=== PATIENT | female | born 1950 | race Caucasian/White ===

== ENCOUNTER 2016-12-10 11:44 | Emergency (ER) | payer BC ==
--- NOTE | 2016-12-10 11:49 | EDM.PDOC ---
ED HPI GI/ABDOMINAL - General Chief Complaint: Gastrointestinal Problem Stated Complaint: DIARRHEA FOR ONE WEEK [phone] Time Seen by Provider: 12/10/16 11:48 Source of Information: Reports: Patient, RN, RN notes reviewed History Limitations: Reports: No limitations - History of Present Illness INITIAL COMMENTS - FREE TEXT/NARRATIVE: C/O diarrhea x1 week. Pt reports that at the onset she felt fever and chills for a few hours. She admits to nausea intermittently, but only vomited on time several days ago. Denies abdominal pain. She states her anus is sore from the diarrhea. Denies blood or mucus in the stool. 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: Reports: Other medication(s) (OTC Immodium AD, with no relief) - Related Data Allergies/ADRs: Allergies Allergy/AdvReac Type Severity Reaction Status Date / Time codeine Allergy Hives Verified 12/10/16 12:09 cortisone Allergy Swelling Verified 12/10/16 12:09 NSAIDS (Non-Steroidal Allergy Abdominal Verified 12/10/16 12:09 Anti-Inflamma Cramps Home Meds: Home Meds Albuterol Sulfate [Proair Respiclick] 2 puff INH Q4H PRN 12/10/16 [History] Albuterol/Ipratropium [DuoNeb 3.0-0.5 MG/3 ML] 1 each NEB Q4H 12/10/16 [History] Chlorpheniramine Maleate [Chlor-Trimeton] 1 tab PO BID 12/10/16 [History] Cranberry 1 each PO DAILY 12/10/16 [History] Fluticasone Propionate [24 Hour Allergy Relief] 2 sprays NASBOTH DAILY 12/10/16 [History] Fluticasone/Salmeterol [Advair Hfa 230-21 Mcg Inhaler] 2 puff INH BID 12/10/16 [ History] Hydroxychloroquine Sulfate [Plaquenil] 200 mg PO DAILY 12/10/16 [History] Leflunomide 20 mg PO DAILY 12/10/16 [History] Lisinopril 20 mg PO DAILY 12/10/16 [History] Montelukast [Singulair] 10 mg PO DAILY 12/10/16 [History] metFORMIN HCl [Metformin HCl] 1,000 mg PO BID 12/10/16 [History] Past Medical History HEENT History: Reports: Impaired vision Cardiovascular History: Reports: Hypertension Respiratory History: Reports: Asthma, COPD Musculoskeletal History: Reports: Fibromyalgia, RA Endocrine/Metabolic History: Reports: Diabetes, type II Social & Family History - Family History Family Medical History: Noncontributory - Tobacco Use Smoking Status *Q: Former Smoker Tobacco Use Within Last Twelve Months: Cigarettes - Caffeine Use Caffeine Use: Reports: Coffee - Alcohol Use Alcohol Use History: No - Recreational Drug Use Recreational Drug Use: No - Living Situation & Occupation Living situation: Reports: , with spouse Occupation: retired ED ROS GENERAL - Review of Systems Review Of Systems: ROS reveals no pertinent complaints other than HPI. ED EXAM, GI/ABD - Physical Exam Exam: See Below Exam Limited By: No limitations General Appearance: alert, no apparent distress, obese, other (chronically ill appearing) Eyes: bilateral: normal appearance, EOMI Ears: normal external exam, hearing grossly normal Nose: normal inspection, normal mucosa, no blood Throat/Mouth: Normal lips, Normal teeth, Normal gums, Normal oropharynx, Normal voice, No airway compromise, Other (dry oral membranes) Head: atraumatic, normocephalic Neck: normal inspection, supple, non-tender, full range of motion. No: lymphadenopathy (L), lymphadenopathy (R) Respiratory/Chest: no respiratory distress, no accessory muscle use, decreased breath sounds, wheezing Cardiovascular: normal peripheral pulses, regular rate, rhythm, no edema, no gallop, no JVD, no murmur, no rub, tachycardia GI/Abdominal: normal bowel sounds, soft, non tender, no organomegaly, no distention, no abnormal bruit (Female) Exam: Deferred Rectal (Female) Exam: Deferred Back Exam: normal inspection, full range of motion. No: CVA tenderness (L), CVA tenderness (R) Extremities: normal inspection, normal range of motion, non-tender, normal capillary refill, no pedal edema Neurological: alert, oriented, CN II-XII intact, normal cognition, normal gait, no motor/sensory deficits Psychiatric: normal affect, normal mood Skin Exam: Warm, Dry, Intact, Normal color, No rash Course - Vital Signs Last Recorded V/S: Last Vital Signs Temp 37.1 C 12/10/16 12:01 Pulse 112 H 12/10/16 12:01 Resp 18 12/10/16 12:01 BP 121/61 12/10/16 12:01 Pulse Ox 97 12/10/16 12:01 - Orders/Labs/Meds Orders: Active Orders 24 hr Category Date Time Status Peripheral IV Care [RC] . DIRECTED Care 12/10/16 12:19 Active C DIFFICILE TOXIN BY PCR [MREF] Stat Lab 12/10/16 13:42 Ordered CULTURE STOOL [RM] Stat Lab 12/10/16 13:42 Ordered Hemoccult, Stool [OCCULT BLOOD DIAGNOSTIC] [OP] Stat Lab 12/10/16 13:42 Ordered Sodium Chloride 0.9% [Saline Flush] Med 12/10/16 12:18 Active 10 ml FLUSH ASDIRECTED PRN Peripheral IV Insertion Adult [OM.PC] Stat Oth 12/10/16 12:18 Ordered Medication Orders Sodium Chloride (Saline Flush) 10 ml FLUSH ASDIRECTED PRN PRN Reason: Keep Vein Open Last Admin: 12/10/16 12:38 Dose: 10 ml Labs: Laboratory Tests 12/10/16 12/10/16 12/10/16 Range/Units 12:14 12:30 12:30 WBC 11.2 H (5.0-10.0) 10^3/uL RBC 4.93 (4.2-5.4) 10^6/uL Hgb 12.8 (12.0-16.0) g/dL Hct 40.3 (37.0-47.0) % MCV 81.7 (80-100) fL MCH 26.0 L (27.0-34.0) pg MCHC 31.8 L (33.0-35.0) g/dL Plt Count 408 (150-450) 10^3/uL Neut % (Auto) 65.2 (42.2-75.2) % Lymph % (Auto) 10.4 L (20.5-50.1) % Leake % (Auto) 22.9 H (2-8) % Eos % (Auto) 1.2 (1.0-3.0) % Baso % (Auto) 0.3 (0.0-1.0) % Sodium 132 L (135-145) mmol/L Potassium 4.1 (3.6-5.0) mmol/L Chloride 95 L (101-111) mmol/L Carbon Dioxide 24.0 (21.0-31.0) mmol/L Anion Gap 17.1 BUN 14 (7-18) mg/dL Creatinine 1.1 (0.6-1.3) mg/dL Est Cr Clr Drug Dosing 35.65 mL/min Estimated GFR (MDRD) 50 BUN/Creatinine Ratio 12.72 Glucose 272 H (74-105) mg/dL Calcium 8.7 (8.4-10.2) mg/dl Total Bilirubin 0.6 (0.2-1.0) mg/dL AST 35 (10-42) IU/L ALT 37 (10-60) IU/L Alkaline Phosphatase 72 (42-121) IU/L Total Protein 6.9 (6.7-8.2) g/dl Albumin 3.1 L (3.2-5.5) g/dl Globulin 3.8 Albumin/Globulin Ratio 0.82 Amylase 31 (28-100) U/L Lipase 31 (22-51) U/L Urine Color Naye (YELLOW) Urine Appearance Slightly cloudy (CLEAR) Urine pH 6.0 (5.0-9.0) Ur Specific [place] 1.025 (1.005-1.030) Urine Protein >=300 H (NEGATIVE) Urine Glucose (UA) Negative (NEGATIVE) Urine Ketones 40 H (NEGATIVE) Urine Occult Blood Moderate H (NEGATIVE) Urine Nitrite Negative (NEGATIVE) Urine Bilirubin Large H (NEGATIVE) Urine Urobilinogen 0.2 (0.2-1.0) mg/dL Ur Leukocyte Esterase Small H (NEGATIVE) Urine RBC 5-10 H /HPF Urine WBC 0-5 (0-5/HPF) /HPF Ur Epithelial Cells Many H /HPF Urine Bacteria Moderate H (0-FEW/HPF) /HPF Urine Mucus Many H /LPF Meds: Medications Generic Name Dose Route Start Last Admin Trade Name Freq PRN Reason Stop Dose Admin Sodium Chloride 10 ml 12/10/16 12:18 12/10/16 12:38 Saline Flush FLUSH 10 ml ASDIRECTED PRN Administration Keep Vein Open Discontinued Medications Generic Name Dose Route Start Last Admin Trade Name Juan PRN Reason Stop Dose Admin Diphenoxylate HCl/Atropine 2 tab 12/10/16 13:43 12/10/16 13:48 Lomotil 0.025-2.5 Mg PO 12/10/16 13:44 2 tab ONETIME ONE Administration Sodium Chloride 1,000 mls @ 999 mls/hr 12/10/16 12:19 12/10/16 12:40 Normal Saline IV 12/10/16 13:19 999 mls/hr .BOLUS ONE Administration Ondansetron HCl 4 mg 12/10/16 12:20 12/10/16 12:39 Zofran IV 12/10/16 12:21 4 mg ONETIME ONE Administration - Re-Assessments/Exams Free Text/Narrative Re-Assessment/Exam: 12/10/16 14:03 Pt reports feeling improved following tx in ER. She is tolerating po liquids, and has had only one very small watts/brown watery BM. I explained the exam findings, results of all diagnostic tests, working diagnosis, and any potential or additionally considered diagnoses, treatment/ disposition plan, self/home care instructions, rational for the diagnosis/ treatment plan/disposition plan, anticipated course of illness, and follow up instructions to the pt and/or pts family or guardian. The pt and/or pts family or guardian acknowledges understanding of the above explanation(s), and of the signs and symptoms which should prompt the return of the pt to the ER should those or any other concerning symptoms develop. Departure - Departure Time of Disposition: 13:50 Disposition: Home, Self-Care 01 Condition: fair Clinical Impression: Colitis, enteritis, and gastroenteritis of presumed infectious origin, Dehydration Instructions: Dehydration, Adult, [id number], Diarrhea, Adult, [id number], Viral Gastroenteritis, Adult, [id number] Referrals: Rosie White, [employer] [Primary Care Provider] - Forms: ED Department Discharge Additional Instructions: Rx: Lomotil Rx: Zofran Clear liquid diet until nausea improves, then advance to soft bland diet as tolerated. Avoid dairy products (except yogurt with active cultures), high fat foods, spicy , and acidic foods. Follow up with your primary clinic in 2 days for recheck. Have your doctor check the result of your C-Difficile stool test. Return to ER if abdominal pain becomes severe, if your abdomen becomes distended , or if you have a high or persistent fever. - My Orders Last 24 Hours: My Active Orders 12/10/16 12:18 Sodium Chloride 0.9% [Saline Flush] 10 ml FLUSH ASDIRECTED PRN Peripheral IV Insertion Adult [OM.PC] Stat 12/10/16 12:19 Peripheral IV Care [RC] . DIRECTED 12/10/16 13:42 C DIFFICILE TOXIN BY PCR [MREF] Stat CULTURE STOOL [RM] Stat Hemoccult, Stool [OCCULT BLOOD DIAGNOSTIC] [OP] Stat - Assessment/Plan Last 24 Hours: My Active Orders 12/10/16 12:18 Sodium Chloride 0.9% [Saline Flush] 10 ml FLUSH ASDIRECTED PRN Peripheral IV Insertion Adult [OM.PC] Stat 12/10/16 12:19 Peripheral IV Care [RC] . DIRECTED 12/10/16 13:42 C DIFFICILE TOXIN BY PCR [MREF] Stat CULTURE STOOL [RM] Stat Hemoccult, Stool [OCCULT BLOOD DIAGNOSTIC] [OP] Stat
[2016-12-10 12:03] VITALS: BP 121/61
[2016-12-10] MEDS ORDERED: Sodium Chloride 0.9% 10 ML Syringe FLUSH PRN (12:18)
[2016-12-10] MEDS ORDERED: Sodium Chloride 0.9% 1,000 ML IV ONE (12:19)
[2016-12-10] MEDS ORDERED: Ondansetron 4 MG/2 ML SDV IV ONE (12:20)
[2016-12-10] MEDS ORDERED: Atropine/Diphenoxylate 0.025-2.5 MG Tab PO ONE (13:43)
== END 2016-12-10 14:00 | disposition home or self-care (01) ==
LOC: DL.ED 11:44
DX: K52.9 Noninfective gastroenteritis and colitis, unspecified (principal); E86.0 Dehydration; I10 Essential (primary) hypertension; J45.909 Unspecified asthma, uncomplicated; J44.9 Chronic obstructive pulmonary disease, unspecified; M06.9 Rheumatoid arthritis, unspecified; E11.9 Type 2 diabetes mellitus without complications; Z79.84 Long term (current) use of oral hypoglycemic drugs; Z79.899 Other long term (current) drug therapy; Z87.891 Personal history of nicotine dependence; Z88.5 Allergy status to narcotic agent; Z88.8 Allergy status to other drugs, medicaments and biological substances
CPT/HCPCS: 36415; 80053; 81001; 82150; 82272; 83690; 85025; 87493; 96361; 96374; 99284; A9270; J2405; J7030; J7050

== ENCOUNTER 2022-02-08 18:20 | Emergency (ER) | payer OTHER ==
[2022-02-08 22:52] VITALS: BP 147/62; PULSE 86
[2022-02-08] MEDS ORDERED: Acetaminophen 325 MG Tab PO ONE (22:55)
== END 2022-02-09 01:30 | disposition home or self-care (01) ==
LOC: DL.ED 18:20
DX: S52.502A Unspecified fracture of the lower end of left radius, initial encounter for closed fracture (principal); J45.909 Unspecified asthma, uncomplicated; I10 Essential (primary) hypertension; E11.9 Type 2 diabetes mellitus without complications; Z88.5 Allergy status to narcotic agent; Z88.6 Allergy status to analgesic agent; Z88.8 Allergy status to other drugs, medicaments and biological substances; Z79.899 Other long term (current) drug therapy; Z79.4 Long term (current) use of insulin; Z90.49 Acquired absence of other specified parts of digestive tract; Z87.891 Personal history of nicotine dependence; W18.39XA Other fall on same level, initial encounter
CPT/HCPCS: 29125; 73100; 99283; A9270

== ENCOUNTER 2023-10-01 14:28 | Inpatient (IN) | payer MEDICARE, BC ==
[2023-10-01 14:51] LABS: BASOPHILS PERCENT AUTO 0.2 % (0.0-1.0); HEMATOCRIT 38.5 % (37.0-47.0); HEMOGLOBIN 11.4 g/dL (12.0-16.0); LYMPHOCYTES PERCENT AUTO 10.4 % (20.5-50.1); MEAN CORPUSCULAR HEMOGLOBIN 24.6 pg (27.0-34.0); MEAN CORPUSCULAR HGB CONC 29.6 g/dL (33.0-35.0); MONOCYTES PERCENT AUTO 5.5 % (2-8); NEUTROPHILS PERCENT AUTO 82.9 % (42.2-75.2); PLATELET COUNT,PLT 324 10^3/uL (150-450); RED BLOOD CELL COUNT 4.64 10^6/uL (4.2-5.4); WHITE BLOOD CELL COUNT,WBC 12.2 10^3/uL (5.0-10.0)
[2023-10-01 15:12] LABS: ALANINE AMINOTRANSFERASE,ALT 42 U/L (14-59); ALKALINE PHOSPHATASE 115 U/L (46-116); ANION GAP 11.4 mEq/L (7-13); ASPARTATE AMNIOTRANSFERASE,AST 32 U/L (15-37); BILIRUBIN TOTAL 0.3 mg/dL (0.2-1.0); BLOOD UREA NITROGEN,BUN 15 mg/dL (7-18); BUN/CREATININE RATIO 14.7 (No establ ref range); CARBON DIOXIDE,CO2 33 mmol/L (21-32); CHLORIDE,CL 99 mmol/L (98-107); CREATININE 1.02 mg/dL (0.55-1.02); GLUCOSE RANDOM 236 mg/dL (70-99); POTASSIUM,K 4.4 mmol/L (3.5-5.1); PROTEIN TOTAL,TP 7.7 g/dL (6.4-8.2); SODIUM,NA 139 mmol/L (136-145)
[2023-10-01] MEDS: Nitroglycerin 0.4 MG Tab.SL SL ONE (15:17)
[2023-10-01 15:18] LABS: B-TYPE NATRIURETIC PEPTIDE,BNP 111 pg/ml (0-100)
[2023-10-01 15:21] LABS: A/G RATIO 0.64; ESTIMATED GFR 58 mL/min (>=60)
[2023-10-01 15:48] LABS: APPEARANCE,URINE CLEAR (CLEAR); BILIRUBIN,URINE NEGATIVE (NEGATIVE); COLOR,URINE YELLOW (YELLOW); GLUCOSE,URINE NEGATIVE (NEGATIVE); KETONES,URINE NEGATIVE (NEGATIVE); LEUKOCYTE ESTERASE,URINE NEGATIVE (NEGATIVE); NITRITE,URINE NEGATIVE (NEGATIVE); OCCULT BLOOD,URINE TRACE-INTACT (NEGATIVE); PH,URINE 7.5 (5.0-9.0); PROTEIN,URINE NEGATIVE (NEGATIVE); UROBILINOGEN,URINE 0.2 mg/dL (0.2-1.0)
[2023-10-01 15:59] LABS: BACTERIA,URINE FEW /HPF (0-FEW/HPF); EPITHELIAL CELLS,URINE RARE /HPF (NOT SEEN); WBC,URINE 0-5 /HPF (0-5/HPF)
[2023-10-01 16:09] LABS: INFLUENZA A NAA NEGATIVE (NEGATIVE); INFLUENZA B NAA NEGATIVE (NEGATIVE); RESPIRATORY SYNCYTIAL VIR NAA NEGATIVE (NEGATIVE)
[2023-10-01 16:10] LABS: CORONAVIRUS COVID-19 NAA POSITIVE (NEGATIVE)
[2023-10-01] MEDS ORDERED: Acetaminophen/HYDROcodone 325-5 MG Tab PO PRN (17:36)
[2023-10-01] MEDS ORDERED: Docusate Sodium 100 MG Cap PO PRN (17:36)
[2023-10-01] MEDS ORDERED: Bisacodyl 5 MG Tab PO PRN (17:36)
[2023-10-01] MEDS ORDERED: Melatonin 3 MG Tab PO PRN (17:41)
[2023-10-01] MEDS ORDERED: Glucagon,Human Recombinant 1 MG Vial IM PRN (18:01)
[2023-10-01] MEDS ORDERED: 50% Dextrose in Water 50 ML Syringe IVPUSH PRN (18:01)
[2023-10-01] MEDS: REMDESIVIR 200 MG in Sodium Chloride 0.9% 250 ML IV ONE (18:41)
[2023-10-01] MEDS: Levofloxacin/Dextrose 5%-Water 750 MG in Premix Bag 1 BAG IV SCH (18:41)
[2023-10-01] MEDS: amLODIPine 5 MG Tab PO ONE (18:42)
[2023-10-01] MEDS: Dexamethasone 6 MG TABLET PO ONE (18:43)
[2023-10-01] MEDS: Lisinopril 10 MG Tab ONE (19:45)
[2023-10-01] MEDS: Lisinopril 20 MG Tab PO ONE (19:46)
[2023-10-01] MEDS: Insulin Lispro 100 Units/ML 3 ML Vial SUBCUT SCH (21:31)
[2023-10-01] MEDS: Ondansetron 4 MG/2 ML SDV IVPUSH PRN (22:02)
[2023-10-02 06:16] LABS: BASOPHILS PERCENT AUTO 0.1 % (0.0-1.0); HEMATOCRIT 37.7 % (37.0-47.0); HEMOGLOBIN 11.4 g/dL (12.0-16.0); LYMPHOCYTES PERCENT AUTO 8.4 % (20.5-50.1); MEAN CORPUSCULAR HEMOGLOBIN 24.5 pg (27.0-34.0); MEAN CORPUSCULAR HGB CONC 30.2 g/dL (33.0-35.0); MEAN CORPUSCULAR VOLUME 81.1 fL (80-100); MONOCYTES PERCENT AUTO 6.1 % (2-8); NEUTROPHILS PERCENT AUTO 85.4 % (42.2-75.2); PLATELET COUNT,PLT 371 10^3/uL (150-450); RED BLOOD CELL COUNT 4.65 10^6/uL (4.2-5.4); WHITE BLOOD CELL COUNT,WBC 10.5 10^3/uL (5.0-10.0)
[2023-10-02 06:37] LABS: ALBUMIN 2.9 g/dL (3.4-5.0); ANION GAP 11.4 mEq/L (7-13); BILIRUBIN TOTAL 0.3 mg/dL (0.2-1.0); BUN/CREATININE RATIO 21.1 (No establ ref range); CALCIUM 9.1 mg/dL (8.5-10.1); CREATININE 0.95 mg/dL (0.55-1.02); EST CRCL DRUG DOSING (CG) 37.32 mL/min; POTASSIUM,K 4.4 mmol/L (3.5-5.1); PROTEIN TOTAL,TP 7.5 g/dL (6.4-8.2)
[2023-10-02 06:50] LABS: A/G RATIO 0.63
[2023-10-02] MEDS: Carvedilol 3.125 MG Tab PO SCH (09:02)
[2023-10-02] MEDS: Dexamethasone 6 MG TABLET PO SCH (09:03)
[2023-10-02] MEDS: Enoxaparin 40 MG/0.4 ML Syringe SUBCUT SCH (09:03)
[2023-10-02] MEDS: Lisinopril 20 MG Tab PO SCH (09:03)
[2023-10-02] MEDS: cefTRIAXone 1 GM Vial IVPUSH SCH (11:48)
[2023-10-02] MEDS: Azithromycin 500 MG in Sodium Chloride 0.9% 250 ML IV SCH (11:48)
[2023-10-02] MEDS: Albuterol 6.7 GM Inhaler INH PRN (12:21)
[2023-10-02] MEDS: hydrALAZINE 25 MG Tab PO PRN (12:38)
[2023-10-02] MEDS: hydrALAZINE 25 MG Tab PO ONE (17:29)
[2023-10-02] MEDS: REMDESIVIR 100 MG in Sodium Chloride 0.9% 100 ML IV SCH (17:30)
[2023-10-02] MEDS ORDERED: Furosemide 20 MG Tab PO SCH (21:00)
[2023-10-02] MEDS: Furosemide 40 MG/4 ML VIAL IVPUSH ONE (21:23)
[2023-10-02] MEDS: Sodium Chloride 0.9% 10 ML Syringe FLUSH PRN (21:23)
[2023-10-03] MEDS: hydrALAZINE 25 MG Tab PO PRN (04:31)
[2023-10-03 06:36] LABS: BASOPHILS PERCENT AUTO 0.2 % (0.0-1.0); EOSINOPHILS PERCENT AUTO 0.1 % (1.0-3.0); HEMATOCRIT 37.4 % (37.0-47.0); HEMOGLOBIN 11.5 g/dL (12.0-16.0); LYMPHOCYTES PERCENT AUTO 13.4 % (20.5-50.1); MEAN CORPUSCULAR HEMOGLOBIN 24.7 pg (27.0-34.0); MEAN CORPUSCULAR HGB CONC 30.7 g/dL (33.0-35.0); MEAN CORPUSCULAR VOLUME 80.4 fL (80-100); MONOCYTES PERCENT AUTO 10.8 % (2-8); NEUTROPHILS PERCENT AUTO 75.5 % (42.2-75.2); PLATELET COUNT,PLT 455 10^3/uL (150-450); RED BLOOD CELL COUNT 4.65 10^6/uL (4.2-5.4)
[2023-10-03 06:56] LABS: ANION GAP 9.9 mEq/L (7-13); BILIRUBIN TOTAL 0.2 mg/dL (0.2-1.0); CREATININE 0.97 mg/dL (0.55-1.02); EST CRCL DRUG DOSING (CG) 36.55 mL/min; POTASSIUM,K 3.9 mmol/L (3.5-5.1); PROTEIN TOTAL,TP 7.1 g/dL (6.4-8.2)
[2023-10-03 07:17] LABS: A/G RATIO 0.73
[2023-10-03] MEDS: Furosemide 20 MG Tab PO SCH (08:25)
[2023-10-03] MEDS: Azithromycin 250 MG Tab PO SCH (08:25)
[2023-10-03] MEDS ORDERED: Carvedilol 3.125 MG Tab PO SCH (09:00)
[2023-10-03] MEDS: Carvedilol 3.125 MG Tab PO ONE (09:31)
[2023-10-03] MEDS: Furosemide 40 MG/4 ML VIAL IVPUSH SCH (09:32)
[2023-10-03] MEDS: hydrALAZINE 25 MG Tab PO SCH ×2 (10:27→14:40)
[2023-10-03] MEDS: Acetaminophen 325 MG Tab PO PRN (14:41)
[2023-10-03] MEDS: Carvedilol 3.125 MG Tab PO SCH (16:58)
[2023-10-03] MEDS ORDERED: Levofloxacin/Dextrose 5%-Water 750 MG in Premix Bag 1 BAG IV SCH (18:00)
[2023-10-03] MEDS ORDERED: Furosemide 20 MG Tab PO SCH (21:00)
[2023-10-04 06:32] LABS: BASOPHILS PERCENT AUTO 0.3 % (0.0-1.0); EOSINOPHILS PERCENT AUTO 0.1 % (1.0-3.0); HEMATOCRIT 38.5 % (37.0-47.0); HEMOGLOBIN 11.8 g/dL (12.0-16.0); LYMPHOCYTES PERCENT AUTO 15.5 % (20.5-50.1); MEAN CORPUSCULAR HEMOGLOBIN 24.9 pg (27.0-34.0); MEAN CORPUSCULAR HGB CONC 30.6 g/dL (33.0-35.0); MEAN CORPUSCULAR VOLUME 81.4 fL (80-100); MONOCYTES PERCENT AUTO 11.7 % (2-8); NEUTROPHILS PERCENT AUTO 72.4 % (42.2-75.2); PLATELET COUNT,PLT 459 10^3/uL (150-450); RED BLOOD CELL COUNT 4.73 10^6/uL (4.2-5.4); WHITE BLOOD CELL COUNT,WBC 16.8 10^3/uL (5.0-10.0)
[2023-10-04 06:57] LABS: ANION GAP 9.1 mEq/L (7-13); BILIRUBIN TOTAL 0.2 mg/dL (0.2-1.0); CALCIUM 8.9 mg/dL (8.5-10.1); CREATININE 1.05 mg/dL (0.55-1.02); EST CRCL DRUG DOSING (CG) 33.76 mL/min; POTASSIUM,K 4.1 mmol/L (3.5-5.1)
[2023-10-04 06:59] LABS: A/G RATIO 0.75
[2023-10-04] MEDS ORDERED: Albuterol 0.021% 0.63 MG/3 ML Neb Soln NEB PRN (18:30)
[2023-10-05] MEDS: Albuterol/Ipratropium 3.0-0.5 MG/3 ML Neb Soln NEB PRN (08:26)
[2023-10-05 11:01] LABS: APPEARANCE,URINE CLEAR (CLEAR); BILIRUBIN,URINE NEGATIVE (NEGATIVE); COLOR,URINE YELLOW (YELLOW); GLUCOSE,URINE NEGATIVE (NEGATIVE); KETONES,URINE NEGATIVE (NEGATIVE); LEUKOCYTE ESTERASE,URINE NEGATIVE (NEGATIVE); NITRITE,URINE NEGATIVE (NEGATIVE); OCCULT BLOOD,URINE NEGATIVE (NEGATIVE); PROTEIN,URINE NEGATIVE (NEGATIVE); UROBILINOGEN,URINE 0.2 mg/dL (0.2-1.0)
[2023-10-05 12:36] VITALS: BP 146/59; PULSE 78
== END 2023-10-05 13:40 | disposition home or self-care (01) | DRG 177 ==
LOC: DL.ED 14:28 → DL.MS 17:11
PROVIDERS: ADMIT Internal Medicine; ATTEND Internal Medicine
PROC: XW033E5 Introduction of Remdesivir Anti-infective into Peripheral Vein, Percutaneous Approach, New Technology Group 5 (ICD-10-PCS; principal; 2023-10-01)
PROC: 3E0333Z Introduction of Anti-inflammatory into Peripheral Vein, Percutaneous Approach (ICD-10-PCS; 2023-10-01)
DX: U07.1 COVID-19 (principal); J12.82 Pneumonia due to coronavirus disease 2019; J96.11 Chronic respiratory failure with hypoxia; J44.1 Chronic obstructive pulmonary disease with (acute) exacerbation; I16.0 Hypertensive urgency; E11.9 Type 2 diabetes mellitus without complications; Z91.048 Other nonmedicinal substance allergy status; M06.9 Rheumatoid arthritis, unspecified; D64.9 Anemia, unspecified; E78.00 Pure hypercholesterolemia, unspecified; I10 Essential (primary) hypertension; M79.7 Fibromyalgia; Z90.49 Acquired absence of other specified parts of digestive tract; Z79.51 Long term (current) use of inhaled steroids; Z79.4 Long term (current) use of insulin; Z88.5 Allergy status to narcotic agent; Z99.81 Dependence on supplemental oxygen; Z88.8 Allergy status to other drugs, medicaments and biological substances; Z79.899 Other long term (current) drug therapy; Z98.890 Other specified postprocedural states
CPT/HCPCS: 0241U; 36415; 71045; 80053; 81001; 81003; 83605; 83880; 84484; 85025; 86140; 93005; 93010; 94010; 94664; 94760; 99223; 99232; 99239; 99284; 99285; A9270-GY; J0248; J0456; J0696; J1650; J1815-GY; J1940; J1956; J2405; J3490; J7050; J7620-GY; J8540

== ENCOUNTER 2025-04-27 12:31 | Emergency (ER) | payer MEDICARE, BC ==
[2025-04-27 13:10] LABS: BASOPHILS PERCENT AUTO 0.2 % (0.0-1.0); EOSINOPHILS PERCENT AUTO 1.1 % (1.0-3.0); LYMPHOCYTES PERCENT AUTO 7.3 % (20.5-50.1); MONOCYTES PERCENT AUTO 6.7 % (2-8); NEUTROPHILS PERCENT AUTO 84.7 % (42.2-75.2); PLATELET COUNT,PLT 320 10^3/uL (150-450); RED BLOOD CELL COUNT 3.53 10^6/uL (4.2-5.4); WHITE BLOOD CELL COUNT,WBC 13.2 10^3/uL (5.0-10.0)
[2025-04-27] MEDS: Sodium Chloride 0.9% 10 ML Syringe FLUSH PRN (13:29)
[2025-04-27] MEDS: methylPREDNISolone Sodium Succinate 125 MG/2 ML SDV IVPUSH ONE (13:29)
[2025-04-27 13:33] LABS: BLOOD UREA NITROGEN,BUN 17.0 mg/dL (7-18); CARBON DIOXIDE,CO2 43.0 mmol/L (21-32); CHLORIDE,CL 91.0 mmol/L (98-107); CREATININE 1.2 mg/dL (0.55-1.02); EST CRCL DRUG DOSING (CG) 33.51 mL/min; GLUCOSE RANDOM 165.0 mg/dL (70-99); SODIUM,NA 132.0 mmol/L (136-145)
[2025-04-27 13:34] LABS: LACTIC ACID 1.6 mmol/L (0.4-2.0)
[2025-04-27 13:39] LABS: B-TYPE NATRIURETIC PEPTIDE,BNP 103.0 pg/ml (0-100)
[2025-04-27 13:42] LABS: ESTIMATED GFR 47.0 mL/min (>=60); POTASSIUM,K 5.2 mmol/L (3.5-5.1)
[2025-04-27 13:50] LABS: APPEARANCE,URINE CLEAR (CLEAR); GLUCOSE,URINE NEGATIVE (NEGATIVE); OCCULT BLOOD,URINE TRACE-INTACT (NEGATIVE)
[2025-04-27 14:09] LABS: EPITHELIAL CELLS,URINE FEW /HPF (NOT SEEN)
[2025-04-27 14:19] LABS: BICARBONATE,VENOUS 44 mmol/l (19-25); O2 DELIVERY DEVICE NASAL CANNULA; O2 SATURATION VENOUS 58.5 % (60-80); PH,VENOUS 7.32 (7.31-7.41); PO2 VENOUS 49 mmHg (35-42)
[2025-04-27 14:20] LABS: BASE EXCESS VENOUS 15.6 mmol/l ((-2)-(+3))
[2025-04-27 14:22] LABS: PCO2 VENOUS 88 mmHg (41-51)
[2025-04-27] MEDS: Iopamidol 755 Mg/ML 100 ML Bottle IVPUSH ONE (14:38)
[2025-04-27 19:18] LABS: O2 DELIVERY DEVICE NASAL CANNULA
[2025-04-27 19:20] LABS: PH,VENOUS 7.34 (7.31-7.41)
[2025-04-27 19:22] LABS: BASE EXCESS VENOUS 12.3 mmol/l ((-2)-(+3)); BICARBONATE,VENOUS 40 mmol/l (19-25); O2 SATURATION VENOUS 84.4 % (60-80); PCO2 VENOUS 75 mmHg (41-51); PO2 VENOUS 61 mmHg (35-42)
[2025-04-27 20:48] VITALS: BP 135/102; PULSE 98
== END 2025-04-27 20:05 ==
LOC: DL.ED 12:31
DX: J44.1 Chronic obstructive pulmonary disease with (acute) exacerbation (principal); J44.0 Chronic obstructive pulmonary disease with (acute) lower respiratory infection; J18.9 Pneumonia, unspecified organism; I10 Essential (primary) hypertension; E78.00 Pure hypercholesterolemia, unspecified; E11.9 Type 2 diabetes mellitus without complications; Z88.0 Allergy status to penicillin; Z91.048 Other nonmedicinal substance allergy status; Z88.8 Allergy status to other drugs, medicaments and biological substances; Z79.899 Other long term (current) drug therapy; Z79.4 Long term (current) use of insulin
CPT/HCPCS: 36415; 71045; 71275; 80048; 81001; 82803; 83605; 83880; 84484; 85025; 85379; 87040; 87428; 93005; 96361; 96365; 96375; 99285; A9270; J0456; J0696; J2919; J7030; J7050; Q9967

== ENCOUNTER 2025-05-10 08:32 | Emergency (ER) | payer MEDICARE, BC ==
[2025-05-10 09:04] LABS: BASOPHILS PERCENT AUTO 0.2 % (0.0-1.0); EOSINOPHILS PERCENT AUTO 0.9 % (1.0-3.0); LYMPHOCYTES PERCENT AUTO 10.1 % (20.5-50.1); MONOCYTES PERCENT AUTO 16.2 % (2-8); NEUTROPHILS PERCENT AUTO 72.6 % (42.2-75.2); PLATELET COUNT,PLT 307 10^3/uL (150-450); RED BLOOD CELL COUNT 3.40 10^6/uL (4.2-5.4); WHITE BLOOD CELL COUNT,WBC 13.8 10^3/uL (5.0-10.0)
[2025-05-10 09:17] LABS: ALANINE AMINOTRANSFERASE,ALT 33.0 U/L (14-59); ASPARTATE AMNIOTRANSFERASE,AST 33.0 U/L (15-37); BILIRUBIN TOTAL 0.2 mg/dL (0.2-1.0); BLOOD UREA NITROGEN,BUN 29.0 mg/dL (7-18); CREATININE 3.48 mg/dL (0.55-1.02); EST CRCL DRUG DOSING (CG) 10.03 mL/min; GLUCOSE RANDOM 146.0 mg/dL (70-99); PROTEIN TOTAL,TP 6.7 g/dL (6.4-8.2)
[2025-05-10 09:18] LABS: LACTIC ACID 1.1 mmol/L (0.4-2.0)
[2025-05-10 09:20] LABS: A/G RATIO 0.72; CARBON DIOXIDE,CO2 42.0 mmol/L (21-32); CHLORIDE,CL 91.0 mmol/L (98-107); ESTIMATED GFR 13.0 mL/min (>=60); POTASSIUM,K 5.7 mmol/L (3.5-5.1); SODIUM,NA 131.0 mmol/L (136-145)
[2025-05-10] MEDS: Midazolam 1 MG/ML 2 ML SDV IVPUSH ONE (09:42)
[2025-05-10 09:48] LABS: INR 1.0 (0.9-1.2)
[2025-05-10] MEDS: Nitroglycerin 0.4 MG Tab.SL SL ONE (10:57)
[2025-05-10 11:28] VITALS: BP 96/75; PULSE 79
[2025-05-10] MEDS: Aspirin 325 MG Tab.EC PO ONE (11:53)
[2025-05-10 12:50] LABS: ALANINE AMINOTRANSFERASE,ALT 35.0 U/L (14-59); ASPARTATE AMNIOTRANSFERASE,AST 39.0 U/L (15-37); BILIRUBIN TOTAL 0.2 mg/dL (0.2-1.0); BLOOD UREA NITROGEN,BUN 31.0 mg/dL (7-18); CARBON DIOXIDE,CO2 36.0 mmol/L (21-32); CREATININE 3.37 mg/dL (0.55-1.02); EST CRCL DRUG DOSING (CG) 10.36 mL/min; GLUCOSE RANDOM 160.0 mg/dL (70-99); PROTEIN TOTAL,TP 6.6 g/dL (6.4-8.2)
[2025-05-10 12:53] LABS: CHLORIDE,CL 89.0 mmol/L (98-107); POTASSIUM,K 5.7 mmol/L (3.5-5.1); SODIUM,NA 128.0 mmol/L (136-145)
[2025-05-10 12:54] LABS: A/G RATIO 0.69; ESTIMATED GFR 14.0 mL/min (>=60)
[2025-05-10] MEDS: Furosemide 40 MG/4 ML VIAL IVPUSH ONE (13:03)
[2025-05-10] MEDS ORDERED: Heparin Sodium 5,000 Units/ML Vial IVPUSH ONE (13:16)
[2025-05-10] MEDS: Heparin Sodium/0.45% NaCl 25,000 UNITS/500 ML BAG IV SCH (13:27)
[2025-05-10] MEDS ORDERED: Heparin Sodium 5,000 Units/ML Vial IV ONE (13:30)
[2025-05-10] MEDS: Heparin Sodium 5,000 Units/ML Vial IVPUSH ONE (13:34)
== END 2025-05-10 13:36 ==
LOC: DL.ED 08:32
DX: I21.4 Non-ST elevation (NSTEMI) myocardial infarction (principal); I12.0 Hypertensive chronic kidney disease with stage 5 chronic kidney disease or end stage renal disease; N18.5 Chronic kidney disease, stage 5; N17.9 Acute kidney failure, unspecified; E78.00 Pure hypercholesterolemia, unspecified; J44.89 Other specified chronic obstructive pulmonary disease; E11.22 Type 2 diabetes mellitus with diabetic chronic kidney disease; Z90.49 Acquired absence of other specified parts of digestive tract; Z88.5 Allergy status to narcotic agent; Z88.8 Allergy status to other drugs, medicaments and biological substances; Z91.048 Other nonmedicinal substance allergy status; Z79.4 Long term (current) use of insulin; Z79.899 Other long term (current) drug therapy
CPT/HCPCS: 36415; 70450; 71045; 80053; 83605; 83735; 83880; 84145; 84484; 85025; 85379; 85610; 86850; 86900; 86901; 93005; 93010; 96374; 96375; 99285; A9270; J1644; J1938; J2250